=== PATIENT | male | born 1980 | race Hispanic/Latino ===

== ENCOUNTER 2016-11-04 16:58 | Emergency (ER) | payer BC ==
[2016-11-04 18:07] VITALS: BP 134/88
[2016-11-04 18:28] LABS: Urine Drugs of Abuse Note Disclamer
[2016-11-04 18:42] LABS: Bilirubin,Urine NEG (Negative); Blood,Urine SM (Negative); Ketones,Urine TR mg/dL (Negative); Leukocyte Esterase,Urine NEG (Negative); Mucus,Urine FEW /HPF; Nitrite,Urine NEG (Negative); Urobilinogen,Urine < 2.0 mg/dL (<2.0)
[2016-11-04 19:42] LABS: Basophils % (Auto) 0.4 % (0.0-1.8); Eosinophils % (Auto) 0.2 % (0.0-4.3); Hematocrit 41.7 % (35.5-45.6); Hemoglobin 13.8 gm/dl (11.8-15.2); Mean Corpuscular HGB Conc 33 % (32-34); Mean Corpuscular Hemoglobin 28 pg (28-32); Mean Corpuscular Volume 85 fl (84-94); Platelet Count 231 K/mm3 (140-440); Red Blood Count 4.92 M/mm3 (3.65-5.03); Red Cell Distribution Width 13.2 % (13.2-15.2); White Blood Count 11.1 K/mm3 (4.5-11.0)
[2016-11-04 19:58] LABS: Alanine Aminotransferase 31 units/L (7-56); Albumin 4.4 g/dL (3.9-5); Albumin/Globulin Ratio 1.7 %; Alkaline Phosphatase 70 units/L (35-129); Anion Gap 17 mmol/L; BUN/Creatinine Ratio 16.25; Bilirubin,Total 0.3 mg/dL (0.1-1.2); Blood Urea Nitrogen 13 mg/dL (9-20); Calcium 8.8 mg/dL (8.4-10.2); Carbon Dioxide 26 mmol/L (22-30); Chloride 100.1 mmol/L (98-107); Glucose 78 mg/dL (75-100); Potassium 4.2 mmol/L (3.6-5.0); Sodium 139 mmol/L (137-145)
--- NOTE | 2016-11-04 21:10 | Emergency Department Report ---
History of Present Illness - General Chief Complaint: Overdose Stated Complaint: OVERDOSE Source: patient, EMS Mode of arrival: Stretcher Limitations: No Limitations - History of Present Illness Initial Comments: 36-year-old male with a past medical history of ADHD and drug abuse presents to the hospital with airway overdose and hand fracture. Patient was found unresponsive in a vehicle. Upon EMS arrival patient was significantly hypertensive 216/118, pulse rate 134, O2 sat 96%, respirations 10 upon their initial evaluation. Patient received Narcan 2 mg and normal saline with improvement in mental status. Patient is currently alert and oriented 3. He admits to IV injection of narcotics but thinks he was given fentanyl instead of heroin. Patient also has a bottle of Vyvanse 50 mg once a day. 30 tablets were prescribed on October 24 and patient only has 9 tablets left. Patient denies overdosing on his medication and states that other people have been taking his pills besides himself. Patient punched a wall with both of his fists but complains of pain to the lateral portion of his right hand. Patient is left-hand dominant. - Related Data Home Medications Medication Instructions Recorded Confirmed Last Taken Lisdexamfetamine Dimesylate 50 mg PO QAM 11/04/16 11/04/16 11/04/16 [Vyvanse] Previous Rx's Medication Instructions Recorded Last Taken Type Ibuprofen [Motrin] 800 mg PO Q8HR PRN #30 tablet 11/04/16 Unknown Rx Allergies Allergy/AdvReac Type Severity Reaction Status Date / Time No Known Allergies Allergy Verified 11/04/16 18:01 ED Review of Systems ROS: Stated complaint: OVERDOSE Other details as noted in HPI Comment: All other systems reviewed and negative Other: Constitutional: No fevers chills Eyes: No eye pain visual changes ENT: No ear pain or throat pain Neck: Denies pain Respiratory: Denies cough wheezing shortness of breath Cardiovascular: Denies chest pain, palpitations, syncope GI: Denies abdominal pain, nausea, vomiting, diarrhea : Denies dysuria, urinary frequency, or urgency Musculoskeletal:as per hpi Skin: Denies rash, lesions, erythema Neurologic: Denies headache, numbness, weakness Psychiatric: Denies suicidal ideation, hallucinations ED Past Medical Hx - Past Medical History Previous Medical History?: Yes Hx Psychiatric Treatment: Yes (ADHD) - Surgical History Past Surgical History?: Yes Additional Surgical History: PE tubes. "sinus surgeries" - Social History Smoking Status: Current Every Day Smoker Substance Use Type: Heroin - Medications Home Medications: Home Medications Medication Instructions Recorded Confirmed Last Taken Type Ibuprofen [Motrin] 800 mg PO Q8HR PRN #30 tablet 11/04/16 Unknown Rx Lisdexamfetamine Dimesylate 50 mg PO QAM 11/04/16 11/04/16 11/04/16 History [Vyvanse] ED Physical Exam - General Limitations: No Limitations - Other Other exam information: General: No limitations, patient is alert in no acute distress Head exam: Atraumatic, normocephalic Eyes exam: Normal appearance, [place] ENT: Moist mucous membrane, normal oropharynx Neck exam: Normal inspection, full range of motion Respiratory exam: Clear to auscultation bilateral, no wheezes, rales, crackles Cardiovascular: Normal rate and rhythm, normal heart sounds Abdomen: Soft, nondistended, and nontender, with normal bowel sounds, no rebound, or guarding Extremity: Full range of motion, swelling and pain at the distal fifth metacarpal area Back: Normal Inspection, full range of motion, no tenderness Neurologic: Alert, oriented x3, cranial nerves intact, no motor or sensory deficit Psychiatric: normal affect, normal mood Skin: Warm, dry, intact ED Course Vital Signs 11/04/16 11/04/16 11/04/16 18:02 18:12 18:49 Temperature 98.4 F Pulse Rate 121 H Respiratory 16 16 Rate Blood Pressure 134/88 131/87 O2 Sat by Pulse 97 97 100 Oximetry 11/04/16 11/04/16 11/04/16 19:00 19:31 20:00 Temperature Pulse Rate Respiratory Rate Blood Pressure 143/100 143/100 134/88 O2 Sat by Pulse 97 96 Oximetry 11/04/16 11/04/16 11/04/16 20:31 21:00 21:01 Temperature Pulse Rate 98 H Respiratory 18 Rate Blood Pressure 134/88 134/88 O2 Sat by Pulse 98 99 95 Oximetry 11/04/16 21:31 Temperature Pulse Rate Respiratory Rate Blood Pressure 134/88 O2 Sat by Pulse 97 Oximetry - Reevaluation(s) Reevaluation #1: 11/04/16 22:06 upon patient states that his family has got him into [facility] and they have a bed. I spoke to Jesse with mental health to help facilitate this process. He will evaluate patient to make sure that this transition from the ED to inpatient treatment can be made. - Consultations Consultation #1: 11/04/16 22:07 Jesse with Mental health consulted ED Medical Decision Making - Lab Data Result diagrams: 11/04/16 19:28 11/04/16 19:28 Lab Results 11/04/16 11/04/16 11/04/16 Range/Units 18:12 18:12 19:28 WBC 11.1 H (4.5-11.0) K/mm3 RBC 4.92 (3.65-5.03) M/mm3 Hgb 13.8 (11.8-15.2) gm/dl Hct 41.7 (35.5-45.6) % MCV 85 (84-94) fl MCH 28 (28-32) pg MCHC 33 (32-34) % RDW 13.2 (13.2-15.2) % Plt Count 231 (140-440) K/mm3 Lymph % (Auto) 9.4 L (13.4-35.0) % [place] % (Auto) 5.2 (0.0-7.3) % Eos % (Auto) 0.2 (0.0-4.3) % Baso % (Auto) 0.4 (0.0-1.8) % Lymph # 1.0 L (1.2-5.4) K/mm3 [place] # 0.6 (0.0-0.8) K/mm3 Eos # 0.0 (0.0-0.4) K/mm3 Baso # 0.0 (0.0-0.1) K/mm3 Seg Neutrophils % 84.8 H (40.0-70.0) % Seg Neutrophils # 9.4 H (1.8-7.7) K/mm3 Sodium (137-145) mmol/L Potassium (3.6-5.0) mmol/L Chloride (98-107) mmol/L Carbon Dioxide (22-30) mmol/L Anion Gap mmol/L BUN (9-20) mg/dL Creatinine (0.8-1.5) mg/dL Estimated GFR ml/min BUN/Creatinine Ratio % Glucose (75-100) mg/dL Calcium (8.4-10.2) mg/dL Total Bilirubin (0.1-1.2) mg/dL AST (5-40) units/L ALT (7-56) units/L Alkaline Phosphatase (35-129) units/L Total Protein (6.3-8.2) g/dL Albumin (3.9-5) g/dL Albumin/Globulin Ratio % Urine Color Straw (Yellow) Urine Turbidity Clear (Clear) Urine pH 7.0 (5.0-7.0) Ur Specific [place] 1.011 (1.003-1.030) Urine Protein 100 mg/dl (Negative) mg/dL Urine Glucose (UA) >=500 (Negative) mg/dL Urine Ketones Tr (Negative) mg/dL Urine Blood Sm (Negative) Urine Nitrite Neg (Negative) Urine Bilirubin Neg (Negative) Urine Urobilinogen < 2.0 (<2.0) mg/dL Ur Leukocyte Esterase Neg (Negative) Urine WBC (Auto) 2.0 (0.0-6.0) /HPF Urine RBC (Auto) 1.0 (0.0-6.0) /HPF Urine Mucus Few /HPF Salicylates (2.8-20.0) mg/dL Urine Opiates Screen Presumptive negative Urine Methadone Screen Presumptive negative Acetaminophen (10.0-30.0) ug/mL Ur Barbiturates Screen Presumptive negative Ur Phencyclidine Scrn Presumptive negative Ur Amphetamines Screen Presumptive positive U Benzodiazepines Scrn Presumptive negative Urine Cocaine Screen Presumptive negative U Marijuana (THC) Screen Presumptive negative Drugs of Abuse Note Disclamer Plasma/Serum Alcohol (0-0.07) gm% 11/04/16 11/04/16 11/04/16 Range/Units 19:28 19:28 19:28 WBC (4.5-11.0) K/mm3 RBC (3.65-5.03) M/mm3 Hgb (11.8-15.2) gm/dl Hct (35.5-45.6) % MCV (84-94) fl MCH (28-32) pg MCHC (32-34) % RDW (13.2-15.2) % Plt Count (140-440) K/mm3 Lymph % (Auto) (13.4-35.0) % [place] % (Auto) (0.0-7.3) % Eos % (Auto) (0.0-4.3) % Baso % (Auto) (0.0-1.8) % Lymph # (1.2-5.4) K/mm3 [place] # (0.0-0.8) K/mm3 Eos # (0.0-0.4) K/mm3 Baso # (0.0-0.1) K/mm3 Seg Neutrophils % (40.0-70.0) % Seg Neutrophils # (1.8-7.7) K/mm3 Sodium 139 (137-145) mmol/L Potassium 4.2 (3.6-5.0) mmol/L Chloride 100.1 (98-107) mmol/L Carbon Dioxide 26 (22-30) mmol/L Anion Gap 17 mmol/L BUN 13 (9-20) mg/dL Creatinine 0.8 (0.8-1.5) mg/dL Estimated GFR > 60 ml/min BUN/Creatinine Ratio 16.25 % Glucose 78 (75-100) mg/dL Calcium 8.8 (8.4-10.2) mg/dL Total Bilirubin 0.3 (0.1-1.2) mg/dL AST 33 (5-40) units/L ALT 31 (7-56) units/L Alkaline Phosphatase 70 (35-129) units/L Total Protein 7.0 (6.3-8.2) g/dL Albumin 4.4 (3.9-5) g/dL Albumin/Globulin Ratio 1.7 % Urine Color (Yellow) Urine Turbidity (Clear) Urine pH (5.0-7.0) Ur Specific [place] (1.003-1.030) Urine Protein (Negative) mg/dL Urine Glucose (UA) (Negative) mg/dL Urine Ketones (Negative) mg/dL Urine Blood (Negative) Urine Nitrite (Negative) Urine Bilirubin (Negative) Urine Urobilinogen (<2.0) mg/dL Ur Leukocyte Esterase (Negative) Urine WBC (Auto) (0.0-6.0) /HPF Urine RBC (Auto) (0.0-6.0) /HPF Urine Mucus /HPF Salicylates < 0.3 L (2.8-20.0) mg/dL Urine Opiates Screen Urine Methadone Screen Acetaminophen < 15.0 (10.0-30.0) ug/mL Ur Barbiturates Screen Ur Phencyclidine Scrn Ur Amphetamines Screen U Benzodiazepines Scrn Urine Cocaine Screen U Marijuana (THC) Screen Drugs of Abuse Note Plasma/Serum Alcohol (0-0.07) gm% 11/04/16 Range/Units 19:28 WBC (4.5-11.0) K/mm3 RBC (3.65-5.03) M/mm3 Hgb (11.8-15.2) gm/dl Hct (35.5-45.6) % MCV (84-94) fl MCH (28-32) pg MCHC (32-34) % RDW (13.2-15.2) % Plt Count (140-440) K/mm3 Lymph % (Auto) (13.4-35.0) % [place] % (Auto) (0.0-7.3) % Eos % (Auto) (0.0-4.3) % Baso % (Auto) (0.0-1.8) % Lymph # (1.2-5.4) K/mm3 [place] # (0.0-0.8) K/mm3 Eos # (0.0-0.4) K/mm3 Baso # (0.0-0.1) K/mm3 Seg Neutrophils % (40.0-70.0) % Seg Neutrophils # (1.8-7.7) K/mm3 Sodium (137-145) mmol/L Potassium (3.6-5.0) mmol/L Chloride (98-107) mmol/L Carbon Dioxide (22-30) mmol/L Anion Gap mmol/L BUN (9-20) mg/dL Creatinine (0.8-1.5) mg/dL Estimated GFR ml/min BUN/Creatinine Ratio % Glucose (75-100) mg/dL Calcium (8.4-10.2) mg/dL Total Bilirubin (0.1-1.2) mg/dL AST (5-40) units/L ALT (7-56) units/L Alkaline Phosphatase (35-129) units/L Total Protein (6.3-8.2) g/dL Albumin (3.9-5) g/dL Albumin/Globulin Ratio % Urine Color (Yellow) Urine Turbidity (Clear) Urine pH (5.0-7.0) Ur Specific [place] (1.003-1.030) Urine Protein (Negative) mg/dL Urine Glucose (UA) (Negative) mg/dL Urine Ketones (Negative) mg/dL Urine Blood (Negative) Urine Nitrite (Negative) Urine Bilirubin (Negative) Urine Urobilinogen (<2.0) mg/dL Ur Leukocyte Esterase (Negative) Urine WBC (Auto) (0.0-6.0) /HPF Urine RBC (Auto) (0.0-6.0) /HPF Urine Mucus /HPF Salicylates (2.8-20.0) mg/dL Urine Opiates Screen Urine Methadone Screen Acetaminophen (10.0-30.0) ug/mL Ur Barbiturates Screen Ur Phencyclidine Scrn Ur Amphetamines Screen U Benzodiazepines Scrn Urine Cocaine Screen U Marijuana (THC) Screen Drugs of Abuse Note Plasma/Serum Alcohol < 0.01 (0-0.07) gm% - EKG Data -: EKG Interpreted by Me (sinus tach 103, no stemi) - EKG Data When compared to previous EKG there are: previous EKG unavailable - Medical Decision Making Splint inspected by me as deemed infected. Patient had a right hand ulnar gutter splint placed and sling provided prior to discharge. Patient remained alert and oriented since initial ED presentation and after receiving Narcan without any recurrence drowsiness or alteration in mental status. He will be discharged on Motrin. Orthopedic follow-up will be encouraged. Also provided resources for substance abuse help upon discharge. Patient expressed to me that he was planning to go to [facility]. I consulted Jesse with mental health. We were attempting to transfer patient directly to [facility] for detox however, patient states he had to handle some legal issues and plans to go to [facility] in the morning. - Differential Diagnosis drug overdose, fracture, contusion, sprain Critical Care Time: No Critical care attestation.: If time is entered above; I have spent that time in minutes in the direct care of this critically ill patient, excluding procedure time. ED Disposition Clinical Impression: Heroin overdose, Hand fracture, right Disposition: DISCHARGED TO HOME OR SELFCARE Is pt being admited?: No Does the pt Need Aspirin: No Condition: Stable Instructions: Hand Fracture (ED), Narcotic Abuse (ED) Additional Instructions: History of Present Illness - General Chief Complaint: Overdose Stated Complaint: OVERDOSE Source: patient, EMS Mode of arrival: Stretcher Limitations: No Limitations - History of Present Illness Initial Comments: 36-year-old male with a past medical history of ADHD and drug abuse presents to the hospital with airway overdose and hand fracture - Related Data Home Medications Medication Instructions Recorded Confirmed Last Taken Lisdexamfetamine Dimesylate 50 mg PO QAM 11/04/16 11/04/16 11/04/16 [Vyvanse] Allergies Allergy/AdvReac Type Severity Reaction Status Date / Time No Known Allergies Allergy Verified 11/04/16 18:01 ED Review of Systems ROS: Stated complaint: OVERDOSE Other details as noted in HPI ED Past Medical Hx - Past Medical History Previous Medical History?: Yes Hx Psychiatric Treatment: Yes (ADHD) - Surgical History Past Surgical History?: Yes Additional Surgical History: PE tubes. "sinus surgeries" - Social History Smoking Status: Current Every Day Smoker Substance Use Type: Heroin - Medications Home Medications: Home Medications Medication Instructions Recorded Confirmed Last Taken Type Lisdexamfetamine Dimesylate 50 mg PO QAM 11/04/16 11/04/16 11/04/16 History [Vyvanse] ED Physical Exam - General Limitations: No Limitations ED Course Vital Signs 11/04/16 11/04/16 18:02 18:12 Temperature 98.4 F Pulse Rate 121 H Respiratory 16 16 Rate Blood Pressure 134/88 O2 Sat by Pulse 97 97 Oximetry ED Medical Decision Making - Lab Data Result diagrams: 11/04/16 19:28 11/04/16 19:28 Critical care attestation.: If time is entered above; I have spent that time in minutes in the direct care of this critically ill patient, excluding procedure time. ED Disposition Clinical Impression: Heroin overdose, Hand fracture, right Disposition: DISCHARGED TO HOME OR SELFCARE Is pt being admited?: No Does the pt Need Aspirin: No Condition: Stable Instructions: Narcotic Abuse (ED), Hand Fracture (ED) Additional Instructions: Take the Motrin as needed for pain Referrals: MALAIKA CARMEN MD [Primary Care Provider] - 3-5 Days Take the Motrin as needed for pain. Follow-up with you the [facility] department or [facility] for help with substance/drug abuse. It is important she follow up with orthopedic surgeon for further management of your head fracture. Prescriptions: Ibuprofen [Motrin] 800 mg PO Q8HR PRN #30 tablet PRN Reason: Pain Referrals: MD [facility] [Other] - 3-5 Days [facility] [Outside] - 3-5 Days MANN NEWTON MD [Staff Physician] - 3-5 Days (Orthopedic) Time of Disposition: 21:54
--- NOTE | 2016-11-05 08:41 | XRay Report ---
RIGHT HAND RADIOGRAPHS INDICATION: Right hand injury, pain, swelling. Patient hit wall with hand today. COMPARISON: None similar at this institution. FINDINGS: AP, lateral and oblique right hand radiographs demonstrate a horizontal, nondisplaced fifth metacarpal neck fracture with overlying soft tissue swelling. No joint involvement. An elongated 5 mm faint density also projects in the soft tissues between the fourth and fifth metacarpals on the frontal view. Please correlate. Normal remainder exam. An IV cannula at the wrist incidentally noted. CONCLUSION: Right fifth metacarpal neck acute nondisplaced fracture and few other findings, as described. Please correlate. Thank you for the opportunity to participate in this patient's care.
== END 2016-11-05 00:50 | disposition home or self-care (01) ==
LOC: ED 16:58
DX: T40.1X1A Poisoning by heroin, accidental (unintentional), initial encounter (principal); S62.91XA Unspecified fracture of right hand, initial encounter for closed fracture; F90.9 Attention-deficit hyperactivity disorder, unspecified type; F17.200 Nicotine dependence, unspecified, uncomplicated; W22.01XA Walked into wall, initial encounter; Y93.89 Activity, other specified; Y92.89 Other specified places as the place of occurrence of the external cause; Y99.8 Other external cause status
CPT/HCPCS: 29125; 36415; 73130; 80053; 80307; 81001; 85025; 93005; 93010; 99285; G0480; 80320